=== PATIENT | female | born 1955 | race Caucasian/White ===

== ENCOUNTER → 2018-03-27 | Outpatient (CLI) | payer OTHER ==
[~2018-03-27] MED LIST: ALPR2TAB2 PO; BUPR100T6 PO; HYDR12.58 PO; HYDR1TAB16 PO; SIMV10TA3 PO; TRAM50TA2 PO; [UNRECOGNIZED DRUG - REMARK] PO
== END | disposition home or self-care (01) ==
LOC: CFH 13:39
PROVIDERS: ATTEND Physician Assistant
DX: N63.10 Unspecified lump in the right breast, unspecified quadrant (principal)
CPT/HCPCS: 77065; 77066

== ENCOUNTER → 2018-03-28 | Outpatient (CLI) | payer OTHER | END | disposition home or self-care (01) | LOC: RAD 12:39 | PROVIDERS: ATTEND Physician Assistant | DX: R68.81 Early satiety (principal); F17.200 Nicotine dependence, unspecified, uncomplicated | CPT/HCPCS: 76856 ==

== ENCOUNTER → 2019-04-01 | Outpatient (CLI) | payer OTHER ==
[~2019-04-01] MED LIST changes: -HYDR12.58 PO; +HYDROCHLOROTH12.5 MG PO
== END | disposition home or self-care (01) ==
LOC: CFH 12:01
PROVIDERS: ATTEND Family Medicine
DX: D24.9 Benign neoplasm of unspecified breast (principal); N63.0 Unspecified lump in unspecified breast; R92.2 Inconclusive mammogram
CPT/HCPCS: 77066; G0279